=== PATIENT | male | born 1970 | race Caucasian/White ===

== ENCOUNTER 2020-04-20 08:21 | Outpatient (CLI) | payer BC, SELFPAY ==
[2020-04-20 09:14] LABS: Basophils Absolute Auto 0.1 K/mm3 (0.0-0.1); Basophils Percent Auto 0.7 % (0.2-1.2); Eosinophils Absolute Auto 0.1 K/mm3 (0-0.3); Eosinophils Percent Auto 1.9 % (0-4.4); Hematocrit 43.4 % (42.0-52.0); Hemoglobin 15.2 g/dL (14.0-18.0); Immature Granulocyte Absolute 0.03 K/mm3 (0.00-0.031); Immature Granulocyte Percent A 0.4 % (0-0.5); Lymphocytes Absolute Auto 1.58 K/mm3 (0.9-3.2); Lymphocytes Percent Auto 22.7 % (18.3-44.2); Mean Corpuscular Hemoglobin 32.1 pg (26-34); Mean Corpuscular Volume 91.6 fl (80-100); Mean Platelet Volume 10.2 fl (7.4-10.4); Monocytes Absolute Auto 0.5 K/mm3 (0.1-0.6); Neutrophils Absolute Auto 4.7 K/mm3 (1.3-6.7); Neutrophils Percent Auto 67.3 % (45.5-73.1); Platelet Count Result 216 k/mm3 (150-375); Red Blood Count 4.74 M/mm3 (4.6-6.20); Red Cell Distribution Width 12.9 % (11.5-14.5)
[2020-04-20 09:25] LABS: Hemoglobin A1C 7.2 % (<5.7)
[2020-04-20 09:27] LABS: Alanine Aminotransferase 56 U/L (4-50); Albumin Level 4.2 g/dL (3.5-5.1); Alkaline Phosphatase 59 U/L (38-126); Anion Gap 9 mmol/L (8-16); Aspartate Amino Transferase 104 U/L (17-59); Blood Urea Nitrogen 12 mg/dL (9-20); Calcium 9.2 mg/dL (8.4-10.2); Carbon Dioxide 30 mmol/L (22-30); Chloride 101 mmol/L (98-107); Cholesterol 141 mg/dL (0-200); Estimated Glomerular Filt Rate > 60; Glucose 147 mg/dL (75-110); HDL Direct 49 mg/dL; Potassium 3.8 mmol/L (3.4-5.0); Sodium 140 mmol/L (137-145); Triglycerides 176 mg/dL (<150)
[2020-04-20 09:38] LABS: LDL Cholesterol Direct 76 mg/dL
[2020-04-20 11:51] LABS: Creatinine Urine 268.5 mg/dL
[2020-04-20 11:52] LABS: Vitamin D 25 Hydroxy 35.8 ng/mL
[2020-04-20 11:56] LABS: MALB Creatinine Ratio 45.9 mg/g (0-30); Microalbumin Urine Random 123.2 mg/L (0-16.7)
== END 2020-04-20 08:22 | disposition home or self-care (01) ==
DX: E11.65 Type 2 diabetes mellitus with hyperglycemia (principal); Z87.19 Personal history of other diseases of the digestive system; E78.5 Hyperlipidemia, unspecified; N40.1 Benign prostatic hyperplasia with lower urinary tract symptoms; R53.83 Other fatigue; Z00.00 Encounter for general adult medical examination without abnormal findings; E55.9 Vitamin D deficiency, unspecified
CPT/HCPCS: 36415; 80053; 80061; 82043; 82306; 83036; 85025

== ENCOUNTER 2021-01-12 15:47 | Outpatient (CLI) | payer BC, SELFPAY ==
--- NOTE | ~2021-01-12 | US_ITS ---
EXAMINATION: US renal BI EXAM DATE: 01/12/2021 16:05 INDICATION: Stage III chronic kidney disease. TECHNIQUE: Multiple grayscale and Doppler images of the kidneys were obtained (by a technologist who performed the scan) and subsequently reviewed. There is no prior study for comparison. FINDINGS: Right kidney: There is normal contour and echogenicity. It measures 10.5 x 7.7 x 5.3 centimeters. T here are no focal renal lesions identified. There is no hydronephrosis. Left kidney: There is normal contour and echogenicity. It measures 12.0 x 6.6 x 5.2 centimeters. Th ere are no focal renal lesions identified. There is no hydronephrosis. Bladder unremarkable. IMPRESSION: Sonographically unremarkable kidneys. Reviewed, dictated and finalized at location G.
== END 2021-01-12 15:48 ==
DX: N18.32 Chronic kidney disease, stage 3b (principal)
CPT/HCPCS: 76775

== ENCOUNTER 2021-01-23 12:36 | Emergency (ER) | payer BC, SELFPAY ==
[2021-01-23 12:43] VITALS: BP 127/59; PULSE 100; RESP 16; TEMP 36.8; O2SAT 98
[2021-01-23 13:06] VITALS: BP 132/71; PULSE 88
[2021-01-23 13:07] VITALS: BP 124/68; PULSE 93
[2021-01-23 13:08] VITALS: BP 113/60; PULSE 96
[2021-01-23 13:14] LABS: Basophils Absolute Auto 0.1 K/mm3 (0.0-0.1); Basophils Percent Auto 0.8 % (0.2-1.2); Eosinophils Absolute Auto 0.2 K/mm3 (0-0.3); Eosinophils Percent Auto 2.8 % (0-4.4); Hematocrit 34.6 % (42.0-52.0); Hemoglobin 11.7 g/dL (14.0-18.0); Immature Granulocyte Absolute 0.04 K/mm3 (0.00-0.031); Immature Granulocyte Percent A 0.6 % (0-0.5); Lymphocytes Absolute Auto 1.49 K/mm3 (0.9-3.2); Lymphocytes Percent Auto 22.8 % (18.3-44.2); Mean Corpuscular HGB Conc 33.8 g/dl (32-36); Mean Corpuscular Hemoglobin 30.6 pg (26-34); Mean Corpuscular Volume 90.6 fl (80-100); Mean Platelet Volume 9.7 fl (7.4-10.4); Monocytes Absolute Auto 0.7 K/mm3 (0.1-0.6); Monocytes Percent Auto 10.1 % (2.6-8.5); Neutrophils Absolute Auto 4.1 K/mm3 (1.3-6.7); Neutrophils Percent Auto 62.9 % (45.5-73.1); Platelet Count Result 185 k/mm3 (150-375); Red Blood Count 3.82 M/mm3 (4.6-6.20); Red Cell Distribution Width 13.9 % (11.5-14.5); White Blood Count 6.5 K/mm3 (4.5-10.0)
[2021-01-23] MEDS: SODIUM CHLORIDE 0.9% IV 1,000 ML 999 ML IV CONT (13:18)
[2021-01-23 13:25] LABS: Anion Gap 15 mmol/L (8-16); Blood Urea Nitrogen 44 mg/dL (9-20); Calcium 10.1 mg/dL (8.4-10.2); Carbon Dioxide 22 mmol/L (22-30); Chloride 97 mmol/L (98-107); Creatine Kinase 58 U/L (55-170); Estimated CRCL calculation 39 ml/min; Estimated Glomerular Filt Rate 23; Glucose 112 mg/dL (65-110); Potassium 4.1 mmol/L (3.4-5.0); Sodium 134 mmol/L (137-145)
--- NOTE | 2021-01-23 13:32 | ED.GENADULT ---
HPI - General Adult General Chief complaint: Recheck/Abnormal Lab/Rx Stated complaint: LOW BP Time Seen by Provider: 01/23/21 12:44 History of Present Illness HPI narrative: Patient is a 50-year-old male who presents ER with reports of low blood pressure. Reports last night after taking his blood pressure medicine his blood pressure was running in the 80s systolic. The highest it got was 108 mmHg systolic. Reports he been working out in the heat throughout the day yesterday and was very sweaty. Reports still fatigued today but no dizziness. No chest pain or chest pressure nausea or vomiting. Denies muscle aches. Patient does take amlodipine and olmesartan/HCTZ. Related Data Home Medications Medication Instructions Recorded Confirmed amlodipine 01/23/21 buspirone mg 01/23/21 omeprazole 01/23/21 Allergies Allergy/AdvReac Type Severity Reaction Status Date / Time Penicillins Allergy Unknown Verified 01/23/21 12:45 Review of Systems Review of Systems: All systems reviewed & are unremarkable except as noted in HPI and below Constitutional: Constitutional: Denies chills, Reports fatigue and Denies fever(s) ENT: Denies nasal congestion and Denies sore throat Cardiovascular: Cardiovascular: Denies chest pain and Denies radiating jaw, neck or arm pain Respiratory: Respiratory: Denies cough and Denies dyspnea Musculoskeletal: Musculoskeletal: Denies muscle cramps Neurologic: Reports dizziness, Denies focal weakness and Denies numbness PMFSH Past Medical History Medical History (Updated 01/23/21 @ 14:20 by Alec Albert MD) Chronic kidney disease Diabetes GERD (gastroesophageal reflux disease) Hyperlipidemia Hypertension Exam Narrative: Exam Narrative: GENERAL: Well-appearing, well-nourished, and in no acute distress. HEAD: Normocephalic, atraumatic. ENT: Mucous membranes moist. CHEST: Clear to auscultation. No respiratory distress. HEART: Regular rate and rhythm. Normal peripheral pulses. ABDOMEN: Soft, nontender, nondistended. EXTREMITIES: Normal range of motion. No edema. SKIN: Warm, dry, no rash. NEURO: Alert and oriented x3. PSYCH: Normal mood and affect. Course Course Emergency Course: Patient informed of results. Suspect he was dry as he was dropping his blood pressure with orthostatics. Patient reports that he has chronic kidney disease that was just discovered in the last 2 months. Reports he has been referred to nephrology and is having outpatient ultrasound performed. Discussed with him his creatinine level today and recommend close follow-up. Patient verbalized understanding. Vital Signs Vital signs: Vital Signs Temperature 98.3 F 01/23/21 12:43 Pulse Rate 100 01/23/21 12:43 Respiratory Rate 16 01/23/21 12:43 Blood Pressure 127/59 L 01/23/21 12:43 Pulse Oximetry 98 01/23/21 12:43 Temperature 98.3 F 01/23/21 12:43 Pulse Rate 86 01/23/21 14:09 Respiratory Rate 18 01/23/21 14:09 Blood Pressure 127/77 01/23/21 14:09 Pulse Oximetry 97 01/23/21 14:09 Medical Decision Making Vital Signs Vital Signs: Vital Signs Temperature 98.3 F 01/23/21 12:43 Pulse Rate 100 01/23/21 12:43 Respiratory Rate 16 01/23/21 12:43 Blood Pressure 127/59 L 01/23/21 12:43 Pulse Oximetry 98 01/23/21 12:43 Temperature 98.3 F 01/23/21 12:43 Pulse Rate 86 01/23/21 14:09 Respiratory Rate 18 01/23/21 14:09 Blood Pressure 127/77 01/23/21 14:09 Pulse Oximetry 97 01/23/21 14:09 Lab Data Result diagrams: 01/23/21 13:06 01/23/21 13:06 Labs: Lab Results 01/23/21 01/23/21 Range/Units 13:06 13:06 WBC 6.5 (4.5-10.0) K/mm3 RBC 3.82 L (4.6-6.20) M/mm3 Hgb 11.7 L D (14.0-18.0) g/dL Hct 34.6 L (42.0-52.0) % MCV 90.6 (80-100) fl MCH 30.6 (26-34) pg MCHC 33.8 (32-36) g/dl RDW 13.9 (11.5-14.5) % Plt Count 185 (150-375) k/mm3 MPV 9.7 (7.4-10.4) fl Immature
[2021-01-23 14:09] VITALS: BP 127/77; PULSE 86; RESP 18; O2SAT 97
[2021-01-23 14:36] VITALS: BP 135/86; PULSE 90; RESP 18; O2SAT 96
== END 2021-01-23 14:37 | disposition home or self-care (01) ==
PROVIDERS: Emergency Provider Emergency Medicine; PCP Family Medicine
DX: E86.0 Dehydration (principal); E11.22 Type 2 diabetes mellitus with diabetic chronic kidney disease; I12.9 Hypertensive chronic kidney disease with stage 1 through stage 4 chronic kidney disease, or unspecified chronic kidney disease; N18.9 Chronic kidney disease, unspecified; K21.9 Gastro-esophageal reflux disease without esophagitis; E78.5 Hyperlipidemia, unspecified
CPT/HCPCS: 36415; 80048; 82550; 85025; 96360; 99283; J7030

== ENCOUNTER 2021-05-14 09:44 | Emergency (ER) | payer BC, SELFPAY ==
[2021-05-14 09:56] VITALS: BP 112/69; PULSE 117; RESP 16; TEMP 36.3; O2SAT 97
--- NOTE | 2021-05-14 10:31 | ED.BACK ---
HPI - Back Pain/Injury General Chief Complaint: Back Pain/Injury Stated Complaint: Back Pain Time Seen by Provider: 05/14/21 10:30 Source: patient, RN notes reviewed and old records reviewed Mode of arrival: ambulatory Limitations: no limitations History of Present Illness HPI Narrative: 51 year old male who [facility] with complaints of low back pain with no radiation of pain into legs or into buttocks for the past 2 weeks with no known injury. Patient denies any tingling or numbness to his lower extremities, denies any saddle paraesthesia or any difficulty with bowel or bladder function. Patient reports that he has been using a TEN's unit which as helped some. Patient reports history of past lumbar back pain episodes. MD elicited complaint: back pain Related Data Home Medications Medication Instructions Recorded Confirmed amlodipine 10 mg PO DAILY 01/23/21 05/14/21 buspirone 15 mg PO DAILY 01/23/21 05/14/21 omeprazole 40 mg PO DAILY 01/23/21 05/14/21 cetirizine 10 mg PO DAILY 05/14/21 05/14/21 insulin glargine [Basaglar KwikPen 20 unit SUBCUT DAILY 05/14/21 05/14/21 U-100 Insulin] lancets [OneTouch Delica Plus 05/14/21 05/14/21 Lancet] olmesartan-hydrochlorothiazide 40 tablet PO DAILY 05/14/21 05/14/21 rosuvastatin 20 mg PO DAILY 05/14/21 05/14/21 Allergies Allergy/AdvReac Type Severity Reaction Status Date / Time Penicillins Allergy Unknown Verified 05/14/21 10:00 Review of Systems Review of Systems: CONSTITUTIONAL: Denies fever, chills, or sweats. EYES: Denies visual changes, redness, or discharge. ENT: Denies rhinorrhea, congestion, sore throat, or otalgia. CARDIOVASCULAR: Denies chest pain, palpitations, or edema. RESPIRATORY: Denies cough or dyspnea. GASTROINTESTINAL: Denies abdominal pain, nausea, vomiting, or diarrhea. GENITOURINARY: Denies dysuria or hematuria. SKIN: Denies rash or itching. MUSCULOSKELETAL: positive for lower back pain, joint pain, or myalgia. NEUROLOGIC: Denies headache, numbness, or weakness. PSYCHIATRIC: Positive history of anxiety or depression. All systems reviewed & are unremarkable except as noted in HPI and below PMFSH Past Medical History Medical History Anxiety Chronic kidney disease Diabetes GERD (gastroesophageal reflux disease) Hyperlipidemia Hypertension Surgical History Surgical History H/O gastric sleeve S/p bilateral carpal tunnel release Family History Family History Father Hypertension Diabetes mellitus Heart disease Grandparent Cancer Social History Social History (Updated 05/15/21 @ 09:46 by Allyssa Rebolledo NP) Smoking status: Former smoker Tobacco type: cigarettes Alcohol intake: current Alcohol use details: social Substance use: never Living arrangements: alone Gender identity (if verbalized by the patient): Male Comments At time of signature, agree with nursing past medical, surgical, social and family history. There is no relevant family history pertinent to the presenting complaint Exam Narrative: GENERAL: Well-appearing, well-nourished, and in no acute distress. HEAD: Normocephalic, atraumatic. EYES: PERRLA and EOMI. ENT: Nares clear, no rhinorrhea or epistaxis. Mucous membranes moist.TM's normal with good light reflex, throat pink with no lesions or exudates, no tonsil enlargement. NECK: Supple. no lymphadenopathy CHEST: Clear to auscultation. No respiratory distress.SAO2 97% on room air HEART: Regular rate and rhythm. No murmur heard. Normal peripheral pulses. ABDOMEN: Soft, nontender, nondistended, normal active bowel sounds. EXTREMITIES: Normal range of motion. No edema. Pain to lower back with no radiation of pain to legs, denies any tingling or numbness to lower extremities, pain increases with activity and bending denies any difficult
== END 2021-05-14 10:50 | disposition home or self-care (01) ==
PROVIDERS: Emergency Provider Registered Nurse
DX: S39.012A Strain of muscle, fascia and tendon of lower back, initial encounter (principal); X58.XXXA Exposure to other specified factors, initial encounter; I12.9 Hypertensive chronic kidney disease with stage 1 through stage 4 chronic kidney disease, or unspecified chronic kidney disease; E11.22 Type 2 diabetes mellitus with diabetic chronic kidney disease; N18.9 Chronic kidney disease, unspecified; Z79.4 Long term (current) use of insulin; K21.9 Gastro-esophageal reflux disease without esophagitis; E78.5 Hyperlipidemia, unspecified; F41.9 Anxiety disorder, unspecified
CPT/HCPCS: 99213; G0463

== ENCOUNTER 2021-07-31 15:01 | Emergency (ER) | payer BC, SELFPAY ==
--- NOTE | ~2021-07-31 | XR_ITS ---
EXAMINATION: XR abdomen/kub 1V EXAM DATE: 07/31/2021 18:31 INDICATION: Constipation X 4 Days,Low Abd Cramping,Hx Diabetes,HTN,GERD TECHNIQUE: Frontal projection(s) of the abdomen for interpretation. There is no prior study for carlos housre. FINDINGS: There is expected amount of colonic stool and gas. No small bowel dilation, nonobstructiv e bowel gas pattern. There are no suspicious calcifications identified. There is no organomegaly suspected. The bones are unremarkable. IMPRESSION: Unremarkable abdomen x-ray exam. Reviewed, dictated and finalized at location G. [facility] [employer]
[2021-07-31 15:10] VITALS: BP 151/99; PULSE 151; RESP 24; TEMP 36.3; O2SAT 98
[2021-07-31 18:43] LABS: Basophils Absolute Auto 0.1 K/mm3 (0.0-0.1); Basophils Percent Auto 0.6 % (0.2-1.2); Eosinophils Percent Auto 0.1 % (0-4.4); Hemoglobin 13.8 g/dL (14.0-18.0); Immature Granulocyte Absolute 0.05 K/mm3 (0.00-0.031); Immature Granulocyte Percent A 0.4 % (0-0.5); Lymphocytes Absolute Auto 1.02 K/mm3 (0.9-3.2); Lymphocytes Percent Auto 8.3 % (18.3-44.2); Mean Corpuscular HGB Conc 33.7 g/dl (32-36); Mean Corpuscular Hemoglobin 33.7 pg (26-34); Mean Platelet Volume 10.4 fl (7.4-10.4); Monocytes Absolute Auto 0.6 K/mm3 (0.1-0.6); Monocytes Percent Auto 4.6 % (2.6-8.5); Neutrophils Absolute Auto 10.6 K/mm3 (1.3-6.7); Platelet Count Result 164 k/mm3 (150-375); Red Cell Distribution Width 15.4 % (11.5-14.5); White Blood Count 12.3 K/mm3 (4.5-10.0)
[2021-07-31 18:54] VITALS: BP 143/90; PULSE 104; RESP 18; O2SAT 97
[2021-07-31 19:01] LABS: Alanine Aminotransferase 85 U/L (4-50); Albumin Level 4.5 g/dL (3.5-5.1); Alkaline Phosphatase 103 U/L (38-126); Anion Gap 10 mmol/L (8-16); Aspartate Amino Transferase 235 U/L (17-59); Bilirubin,Total 1.4 mg/dL (0.2-1.3); Blood Urea Nitrogen 24 mg/dL (9-20); Calcium 9.5 mg/dL (8.4-10.2); Carbon Dioxide 27 mmol/L (22-30); Chloride 96 mmol/L (98-107); Estimated CRCL calculation 84 ml/min; Estimated Glomerular Filt Rate 59; Glucose 116 mg/dL (65-110); Potassium 4.4 mmol/L (3.4-5.0); Sodium 133 mmol/L (137-145)
[2021-07-31 19:05] LABS: Lipase 117 U/L (23-300)
[2021-07-31 19:17] VITALS: BP 130/88; PULSE 103; RESP 20; O2SAT 98
--- NOTE | 2021-07-31 19:17 | PC.NURSE ---
Assuming care of pt.
--- NOTE | 2021-07-31 20:05 | ED.GENADULT ---
HPI - General Adult General Chief complaint: Unspecified Stated complaint: Fecal Impaction Time Seen by Provider: 07/31/21 16:55 Source: patient Mode of arrival: ambulatory Limitations: no limitations History of Present Illness HPI narrative: 51-year-old male Here because of stomach issues that have been present for a while He has been having a lot of issues with nausea although not really much in the way of vomiting and consequently his p.o. intake has been relatively poor at least for the last several days He has consulted his primary care doctor in [place] about these issues and actually had an outpatient gallbladder ultrasound done there yesterday but he does not know if the results are yet Tonight he is concerned that he might be impacted because he has not had a decent bowel movement in several days and he describes himself as usually a twice a day kind of kathleen Related Data Home Medications Medication Instructions Recorded Confirmed amlodipine 10 mg PO DAILY 01/23/21 05/14/21 buspirone 15 mg PO DAILY 01/23/21 05/14/21 omeprazole 40 mg PO DAILY 01/23/21 05/14/21 cetirizine 10 mg PO DAILY 05/14/21 05/14/21 insulin glargine [Basaglar KwikPen 20 unit SUBCUT DAILY 05/14/21 05/14/21 U-100 Insulin] lancets [OneTouch Delica Plus 05/14/21 05/14/21 Lancet] olmesartan-hydrochlorothiazide 40 tablet PO DAILY 05/14/21 05/14/21 rosuvastatin 20 mg PO DAILY 05/14/21 05/14/21 escitalopram oxalate mg 07/31/21 Allergies Allergy/AdvReac Type Severity Reaction Status Date / Time Penicillins Allergy Unknown Verified 07/31/21 18:54 Review of Systems Review of Systems: All systems reviewed & are unremarkable except as noted in HPI and below Constitutional: Constitutional: Reports no additional constitutional complaints, Denies chills, Denies fever(s) and Denies headache(s) Eyes: Eyes: Reports no additional eye complaints and Denies change in vision ENT: Denies headache(s) and Denies sore throat Cardiovascular: Cardiovascular: Denies chest pain and Denies dyspnea Respiratory: Respiratory: Denies cough and Denies dyspnea Gastrointestinal: Gastrointestinal: Reports abdominal pain, Reports constipation, Denies diarrhea, Reports nausea and Denies vomiting Genitourinary: Genitourinary: Denies dysuria and Denies urinary frequency Musculoskeletal: Musculoskeletal: Denies deformity, Denies arthralgias, Denies joint swelling and Denies numbness Integumentary/Breasts: Skin/Breast: Denies rash and Denies wounds Neurologic: Denies headache(s), Denies focal weakness and Denies numbness Psychiatric: Psychiatric: Reports no additional psychiatric complaints Endocrine: Endocrine: Reports no additional endocrine complaints Hematologic/Lymphatic: Hematologic/Lymphatic: Reports no additional hematologic/lymphatic complaints Allergic/Immunologic: Allergic/Immunologic: Reports no additional allergic/immunologic complaints [facility], [facility] Past Medical History Medical History Anxiety Chronic kidney disease Diabetes GERD (gastroesophageal reflux disease) Hyperlipidemia Hypertension Surgical History Surgical History H/O gastric sleeve S/p bilateral carpal tunnel release Family History Family History Father Hypertension Diabetes mellitus Heart disease Grandparent Cancer Social History Social History Smoking status: Former smoker Tobacco type: cigarettes Alcohol intake: current Alcohol use details: social Substance use: never Gender identity (if verbalized by the patient): Male Exam Const: General: cooperative and no acute distress Orientation/consciousness: patient oriented x3 (alert) HENMT: Head: normal to inspection, normocephalic and atraumatic Ears: external ears normal General nose exam: no
== END 2021-07-31 21:06 | disposition home or self-care (01) ==
PROVIDERS: Emergency Provider Emergency Medicine; PCP Family Medicine
DX: K59.00 Constipation, unspecified (principal); F41.9 Anxiety disorder, unspecified; I12.9 Hypertensive chronic kidney disease with stage 1 through stage 4 chronic kidney disease, or unspecified chronic kidney disease; E11.22 Type 2 diabetes mellitus with diabetic chronic kidney disease; N18.9 Chronic kidney disease, unspecified; Z79.4 Long term (current) use of insulin
CPT/HCPCS: 36415; 74018; 80053; 83690; 85025; 99283